=== PATIENT | male | born 1990 | race American Indian/Alaskan Native ===

== ENCOUNTER 2021-04-13 22:40 | Emergency (ER) | payer SELFPAY ==
[2021-04-13] MEDS ORDERED: ONDANSETRON 4 MG ODT TAB PO ONE (23:05)
--- NOTE | 2021-04-13 23:10 | Emergency Department Report ---
ED General Adult HPI - General Chief complaint: Pain General Stated complaint: CAN'T REMEMBER WHAT HAPPENED YESTERDAY Time Seen by Provider: 04/13/21 23:05 Source: patient Mode of arrival: Ambulatory Limitations: No Limitations - History of Present Illness Initial comments: Patient 31-year-old male who presents for abdominal pain nausea vomiting times today. Patient states he went out last night and thinks that something that he ate. Objective nausea vomiting abdominal cramping and pain. Patient denies fevers is one diarrhea stool. Last p.o. intake was this a.m. Pain now described as 5/10 aching. And cramping. Patient denies smoking patient denies EtOH. No other medical history. Severity scale (0 -10): 10 - Related Data Previous Rx's Medication Instructions Recorded Last Taken Type Ketorolac [Toradol] 10 mg PO Q6H PRN #12 tablet 04/14/21 Unknown Rx levoFLOXacin [Levaquin TAB] 500 mg PO QDAY 7 Days #7 tablet 04/14/21 Unknown Rx Allergies Allergy/AdvReac Type Severity Reaction Status Date / Time No Known Allergies Allergy Unverified 04/13/21 22:48 ED Review of Systems ROS: Stated complaint: CAN'T REMEMBER WHAT HAPPENED YESTERDAY Other details as noted in HPI Constitutional: malaise Eyes: denies: eye pain, eye discharge, vision change ENT: denies: ear pain, throat pain Respiratory: denies: cough, shortness of breath, wheezing Cardiovascular: denies: chest pain, palpitations Endocrine: no symptoms reported Gastrointestinal: abdominal pain, nausea, vomiting, diarrhea. denies: constipation, hematemesis, melena, hematochezia Genitourinary: denies: urgency, dysuria Musculoskeletal: denies: back pain, joint swelling, arthralgia Skin: denies: rash, lesions Neurological: headache. denies: weakness, numbness, paresthesias, confusion, vertigo Psychiatric: as per HPI Hematological/Lymphatic: denies: easy bleeding, easy bruising ED Past Medical Hx - Medications Home Medications: Home Medications Medication Instructions Recorded Confirmed Last Taken Type Ketorolac [Toradol] 10 mg PO Q6H PRN #12 tablet 04/14/21 Unknown Rx levoFLOXacin [Levaquin TAB] 500 mg PO QDAY 7 Days #7 tablet 04/14/21 Unknown Rx ED Physical Exam - General Limitations: No Limitations General appearance: alert, in no apparent distress - Head Head exam: Present: atraumatic, normocephalic - Eye Eye exam: Present: normal appearance, PERRL, EOMI Pupils: Present: normal accommodation - ENT ENT exam: Present: normal orophraynx, mucous membranes moist, TM's normal bilaterally, normal external ear exam - Neck Neck exam: Present: normal inspection, full ROM. Absent: tenderness, meningismus, lymphadenopathy, thyromegaly - Respiratory Respiratory exam: Present: normal lung sounds bilaterally. Absent: respiratory distress, wheezes, stridor, chest wall tenderness - Cardiovascular Cardiovascular Exam: Present: regular rate, normal rhythm. Absent: systolic murmur, diastolic murmur, rubs, gallop - GI/Abdominal GI/Abdominal exam: Present: soft, normal bowel sounds. Absent: distended, tenderness, guarding, rebound, rigid, bruit, hernia - Rectal Rectal exam: Present: deferred - Extremities Exam Extremities exam: Present: normal inspection, full ROM. Absent: tenderness - Back Exam Back exam: Present: normal inspection, full ROM. Absent: CVA tenderness (R), CVA tenderness (L) - Neurological Exam Neurological exam: Present: alert, oriented X3, CN II-XII intact, normal gait - Psychiatric Psychiatric exam: Present: normal affect, normal mood - Skin Skin exam: Present: warm, dry, intact, normal color. Absent: rash ED Course Vital Signs 04/13/21 22:43 Temperature 98.7 F Pulse Rate 50 L Respiratory 20 Rate Blood Pressure 121/70 [Right] O2 Sat by Pulse 99 Oximetry ED Medical Decision Making - Lab Data Result diagrams: 04/13/21 23:30 04/13/21 23:30 Labs 04/13/21 04/13/21 04/13/21 23:30 23:30 Unknown WBC 9.8 RBC 4.96 Hgb 14.8 Hct 45.6 MCV 92 MCH 30 MCHC 33 RDW 13.7 Plt Count 305 Add Manual Diff Complete Total Counted 100 Seg Neutrophils % [employer] Marine Seg Neuts % (Manual) 85.0 H Lymphocytes % (Manual) 10.0 L Monocytes % (Manual) 4.0 Eosinophils % (Manual) 1.0 Nucleated RBC % Not Reportable Seg Neutrophils # Man 8.3 H Band Neutrophils # 0.0 Lymphocytes # (Manual) 1.0 L Abs React Lymphs (Man) 0.0 Monocytes # (Manual) 0.4 Eosinophils # (Manual) 0.1 Basophils # (Manual) 0.0 Metamyelocytes # 0.0 Myelocytes # 0.0 Promyelocytes # 0.0 Blast Cells # 0.0 WBC Morphology Not Reportable Hypersegmented Neuts Not Reportable Hyposegmented Neuts Not Reportable Hypogranular Neuts Not Reportable Smudge Cells Not Reportable Toxic Granulation Not Reportable Toxic Vacuolation Not Reportable Dohle Bodies Not Reportable Pelger-Huet Anomaly Not Reportable Babar Rods Not Reportable Platelet Estimate Consistent w auto Clumped Platelets Not Reportable Plt Clumps, EDTA Not Reportable Large Platelets Not Reportable Giant Platelets Not Reportable Platelet Satelliting Not Reportable Plt Morphology Comment Not Reportable RBC Morphology Normal Dimorphic RBCs Not Reportable Polychromasia Not Reportable Hypochromasia Not Reportable Poikilocytosis Not Reportable Anisocytosis Not Reportable Microcytosis Not Reportable Macrocytosis Not Reportable Spherocytes Not Reportable Pappenheimer Bodies Not Reportable Sickle Cells Not Reportable Target Cells Not Reportable Tear Drop Cells Not Reportable Ovalocytes Not Reportable Helmet Cells Not Reportable Ramirez-[place] Bodies Not Reportable Elwell Rings Not Reportable Tony Cells Not Reportable Bite Cells Not Reportable Crenated Cell Not Reportable Elliptocytes Not Reportable Acanthocytes (Spur) Not Reportable Rouleaux Not Reportable Hemoglobin C Crystals Not Reportable Schistocytes Not Reportable Malaria parasites Not Reportable Cali Bodies Not Reportable Hem Pathologist Commnt No Sodium 138 Potassium 3.9 Chloride 101.0 Carbon Dioxide 25 Anion Gap 16 BUN 7 L Creatinine 0.7 L Estimated GFR > 60 BUN/Creatinine Ratio 10 Glucose 129 H Calcium 9.6 Total Bilirubin 0.60 AST 17 ALT 13 Alkaline Phosphatase 61 Total Protein 7.1 Albumin 4.5 Albumin/Globulin Ratio 1.7 Lipase 12 L Urine Color Red Urine Turbidity Cloudy Urine pH 6.0 Ur Specific [place] 1.024 Urine Protein 100 mg/dl Urine Glucose (UA) Neg Urine Ketones 20 Urine Blood Lg Urine Nitrite Neg Urine Bilirubin Neg Urine Urobilinogen 2.0 Ur Leukocyte Esterase Neg Urine WBC (Auto) 4.0 Urine RBC (Auto) > 182.0 Urine Mucus 3+ - Radiology Data Radiology results: report reviewed, image reviewed ABDOMEN 1 VIEW 04/13/2021 10:51 PM INDICATION / CLINICAL INFORMATION: Abdominal pain. COMPARISON: None available. FINDINGS: TUBES / LINES: None. BOWEL GAS PATTERN: There is no evidence of bowel obstruction or mass effect. FREE AIR / EXTRALUMINAL GAS: None. ADDITIONAL FINDINGS: There are several calcifications in the right upper quadrant which may represent gallstones or renal calculi. IMPRESSION: Right upper quadrant calcifications may be related to cholelithiasis or nephrolithiasis. Signer Name: Celestino Newton MD Signed: 04/13/2021 11:59 PM Workstation Name: [id number] Transcribed By: RT Dictated By: Celestino Newton MD Electronically Authenticated By: Celestino Newton MD Signed Date/Time: 04/13/[address] OF THE ABDOMEN AND PELVIS WITHOUT CONTRAST INDICATION / CLINICAL INFORMATION: Abdominal pain. Hematuria. TECHNIQUE: All CT scans at this location are performed using CT dose reduction for ALARA by means of automated exposure control. COMPARISON: None available. FINDINGS: ABDOMEN: There is a 1.2 cm ovoid calculus in the right renal pelvis. There is slight dilatation of the right renal pelvis. There is mild right perinephric soft tissue stranding inferiorly There are a couple of additional tiny nonobstructive adjacent calculi in the right mid kidney, the largest of which measures approximately 2 to 3 mm. The left kidney is normal. I do not identify a renal mass. The liver, spleen, gallbladder, bile ducts, pancreas, adrenal glands and bowel demonstrate no significant abnormality. No adenopathy is seen. The lung bases are clear. PELVIS: There is a 2 mm calcification along the anterolateral medial margin of the right psoas muscle on axial image #114 of series #2, probably in the ureter at the L4-5 level. The ureters are difficult to follow due to the lack of intra-abdominal and retroperitoneal fat. There are scattered calcifications in the prostate gland. The urinary bladder is normal. No abnormal mass or fluid collection is seen. There is no evidence of appendicitis or diverticulitis. I do not identify a hernia. No acute osseous abnormality is present.. IMPRESSION: 1. 2 mm calculus in the right ureter at the L4-5 level. 1.2 cm calculus in the right renal pelvis. There is mild right hydronephrosis and perinephric soft tissue stranding. 2. Nonobstructive right nephrolithiasis. Signer Name: Celestino Newton MD Signed: 04/14/2021 2:11 AM Workstation Name: [id number] Transcribed By: RT Dictated By: Celestino Newton MD Electronically Authenticated By: Celestino Newton MD Signed Date/Time: 04/14/21210 - Medical Decision Making CT OF THE ABDOMEN AND PELVIS WITHOUT CONTRAST INDICATION / CLINICAL INFORMATION: Abdominal pain. Hematuria. TECHNIQUE: All CT scans at this location are performed using CT dose reduction for ALARA by means of automated exposure control. COMPARISON: None available. FINDINGS: ABDOMEN: There is a 1.2 cm ovoid calculus in the right renal pelvis. There is slight dilatation of the right renal pelvis. There is mild right perinephric soft tissue stranding inferiorly There are a couple of additional tiny nonobstructive adjacent calculi in the right mid kidney, the largest of which measures approximately 2 to 3 mm. The left kidney is normal. I do not identify a renal mass. The liver, spleen, gallbladder, bile ducts, pancreas, adrenal glands and bowel demonstrate no significant abnormality. No adenopathy is seen. The lung bases are clear. PELVIS: There is a 2 mm calcification along the anterolateral medial margin of the right psoas muscle on axial image #114 of series #2, probably in the ureter at the L4-5 level. The ureters are difficult to follow due to the lack of intra-abdominal and retroperitoneal fat. There are scattered calcifications in the prostate gland. The urinary bladder is normal. No abnormal mass or fluid collection is seen. There is no evidence of appendicitis or diverticulitis. I do not identify a hernia. No acute osseous abnormality is present.. IMPRESSION: 1. 2 mm calculus in the right ureter at the L4-5 level. 1.2 cm calculus in the right renal pelvis. There is mild right hydronephrosis and perinephric soft tissue stranding. 2. Nonobstructive right nephrolithiasis. Signer Name: Celestino Newton MD Signed: 04/14/2021 2:11 AM Workstation Name: [id number] Transcribed By: RT Dictated By: Celestino Newton MD Electronically Authenticated By: Celestino Newton MD Signed Date/Time: 04/14/21210 Critical care attestation.: If time is entered above; I have spent that time in minutes in the direct care of this critically ill patient, excluding procedure time. ED Disposition Clinical Impression: Kidney stones Disposition: 01 HOME / SELF CARE / HOMELESS Is pt being admited?: No Does the pt Need Aspirin: No Condition: Stable Instructions: Low-Purine Eating Plan, Renal Colic, [id number], Kidney Stones Additional Instructions: Take medications as prescribed, follow-up with urology in 2 to 3 days. Return to emergency if symptoms worsen. Prescriptions: levoFLOXacin [Levaquin TAB] 500 mg PO QDAY 7 Days #7 tablet Ketorolac [Toradol] 10 mg PO Q6H PRN #12 tablet PRN Reason: Pain Referrals: GENO GRAY MD [Staff Physician] - 3-5 Days ADAIR RIVERA MD [Staff Physician] - 3-5 Days Forms: Work/School Release Form(ED) Time of Disposition: 03:26
[2021-04-13 23:49] LABS: Hematocrit 45.6 % (35.5-45.6); Hemoglobin 14.8 gm/dl (11.8-15.2); Mean Corpuscular HGB Conc 33 % (32-34); Mean Corpuscular Volume 92 fl (84-94); Platelet Count 305 K/mm3 (140-440); Red Blood Count 4.96 M/mm3 (3.65-5.03); Red Cell Distribution Width 13.7 % (13.2-15.2)
[2021-04-14 00:04] LABS: Alanine Aminotransferase 13 units/L (7-56); Albumin 4.5 g/dL (3.9-5); BUN/Creatinine Ratio 10; Blood Urea Nitrogen 7 mg/dL (9-20); Calcium 9.6 mg/dL (8.4-10.2); Hemolysis Index 3
--- NOTE | 2021-04-14 00:04 | XRay Report ---
ABDOMEN 1 VIEW 04/13/2021 10:51 PM INDICATION / CLINICAL INFORMATION: Abdominal pain. COMPARISON: None available. FINDINGS: TUBES / LINES: None. BOWEL GAS PATTERN: There is no evidence of bowel obstruction or mass effect. FREE AIR / EXTRALUMINAL GAS: None. ADDITIONAL FINDINGS: There are several calcifications in the right upper quadrant which may represent gallstones or renal calculi. IMPRESSION: Right upper quadrant calcifications may be related to cholelithiasis or nephrolithiasis. Signer Name: Celestino Newton MD Signed: 04/13/2021 11:59 PM Workstation Name: [id number]
[2021-04-14 00:34] LABS: Bilirubin,Urine NEG (Negative); Blood,Urine LG (Negative); Color,Urine Red (Yellow); Mucus,Urine 3+ /HPF
[2021-04-14 00:37] LABS: RBC,Urine > 182.0 /HPF (0.0-6.0)
[2021-04-14] MEDS ORDERED: SODIUM CHLORIDE 0.9% 1000 ML 1,000 ML IV ONE (00:41)
[2021-04-14] MEDS ORDERED: ONDANSETRON 4 MG/2 ML INJ IV ONE (00:41)
[2021-04-14] MEDS ORDERED: KETOROLAC 30 MG/1 ML INJ IV ONE (00:41)
[2021-04-14 01:08] LABS: Platelet Estimate Consistent w Auto; RBC Morphology Normal; Total Cells Counted 100
--- NOTE | 2021-04-14 02:15 | Cat Scan Report ---
CT OF THE ABDOMEN AND PELVIS WITHOUT CONTRAST INDICATION / CLINICAL INFORMATION: Abdominal pain. Hematuria. TECHNIQUE: All CT scans at this location are performed using CT dose reduction for ALARA by means of automated exposure control. COMPARISON: None available. FINDINGS: ABDOMEN: There is a 1.2 cm ovoid calculus in the right renal pelvis. There is slight dilatation of th e right renal pelvis. There is mild right perinephric soft tissue stranding inferiorly There are a co uple of additional tiny nonobstructive adjacent calculi in the right mid kidney, the largest of which measures approximately 2 to 3 mm. The left kidney is normal. I do not identify a renal mass. The liver, spleen, gallbladder, bile ducts, pancreas, adrenal glands and bowel demonstrate no signifi cant abnormality. No adenopathy is seen. The lung bases are clear. PELVIS: There is a 2 mm calcification along the anterolateral medial margin of the right psoas muscle on axial image #114 of series #2, probably in the ureter at the L4-5 level. The ureters are difficul t to follow due to the lack of intra-abdominal and retroperitoneal fat. There are scattered calcifications in the prostate gland. The urinary bladder is normal. No abnormal mass or fluid collection is seen. There is no evidence of appendicitis or diverticulitis. I do not id entify a hernia. No acute osseous abnormality is present.. IMPRESSION: 1. 2 mm calculus in the right ureter at the L4-5 level. 1.2 cm calculus in the right renal pelvis. Th ere is mild right hydronephrosis and perinephric soft tissue stranding. 2. Nonobstructive right nephrolithiasis. Signer Name: Celestino Newton MD Signed: 04/14/2021 2:11 AM Workstation Name: [id number]
[2021-04-14] MEDS ORDERED: cefTRIAXone/NS 1 GM/50 ML 1 GM/50 ML BAG IV ONE (02:24)
[2021-04-14 04:58] VITALS: BP 102/55
== END 2021-04-14 04:54 | disposition home or self-care (01) ==
LOC: ED 22:40
DX: N20.0 Calculus of kidney (principal)
CPT/HCPCS: 36415; 74018; 74176; 80053; 81001; 83690; 85007; 85025; 96361; 96365; 96375; 99284; J0696; J1885; J2405; J7030; J3490; Q0162